=== PATIENT | male | born 1935 | race Caucasian/White ===

== ENCOUNTER 2022-11-18 08:41 | Emergency (ER) | payer MEDICARE, SELFPAY ==
[2022-11-18] VITALS (8 sets, daily range): BP systolic 138–180; BP diastolic 70–121; PULSE 103–114; RESP 18–53; O2SAT 92–94; BMI 29.7
--- NOTE | 2022-11-18 08:55 | DI.RAD.S_ITS ---
PROCEDURE: XR CHEST 2V INDICATIONS: SOB TECHNIQUE: 2 views of the chest were acquired. COMPARISON: None. FINDINGS: Surgical changes and devices: None. Lungs and pleura: There is an overall appearance of increased pulmonary vascularity. Mild asymmetric increased is in base. Mediastinum: Mediastinal contours are normal. Heart size is enlarged. Bones and chest wall: No suspicious bony abnormalities. Soft tissues appear unremarkable. IMPRESSION: Increased vascularity suggestive of edema. Mild asymmetric increased opacity in the right base which may represent focal edema versus developing pneumonia. Dictated by: Bre Mayers M.D. on 11/18/2022 at 10:04 Approved by: Bre Mayers M.D. on 11/18/2022 at 10:05
--- NOTE | 2022-11-18 08:55 | ED.GENADULT ---
HPI - General Adult General Chief complaint: Shortness of Breath/Dyspnea Stated complaint: COPD attack, coughing, EMT's advised ER visit Time Seen by Provider: 11/18/22 08:54 History of Present Illness HPI narrative: 87-year-old male former smoker with history of COPD presents with his in the chief complaint of increasing wheezing, shortness of breath and a dry hacking cough for the past few days. He denies any runny nose, sore throat. He denies headache, blurred vision. He has no chest pain, nausea, vomiting or diarrhea. He denies abdominal pain, dysuria, frequency or urgency. He has been using his inhalers at home sporadically but does not use a chamber. They report to of spoken with paramedics this morning who gave a breathing treatment and helped him a bit. He denies any recent travel, injury, trauma, history of blood clot or cancer Related Data Previous Rx's Medication Instructions Recorded amoxicillin 500 mg capsule 1,000 mg PO Q8H 5 days #30 caps 11/18/22 benzonatate 200 mg capsule 200 mg PO BID PRN cough #20 caps 11/18/22 prednisone 10 mg tablet See Rx Instructions .Route 11/18/22 .COMPLEX #30 tabs Allergies Allergy/AdvReac Type Severity Reaction Status Date / Time Sulfa (Sulfonamide Allergy Verified 11/18/22 09:02 Antibiotics) codeine AdvReac Nausea Verified 11/18/22 09:02 pravastatin AdvReac Muscle Pain Verified 11/18/22 09:02 Review of Systems Review of Systems Narrative: GENERAL: Denies chills, fatigue, malaise, fever, sweats. HEENT: Denies sinus pain, ear pain, sore throat, difficulty swallowing, dizziness. RESPIRATORY: See HPI CARDIOVASCULAR: Denies chest pain, palpitations, orthopnea, edema, GASTROINTESTINAL: Denies nausea, vomiting, abdominal pain, diarrhea, constipation, melena. : Denies dysuria, frequency, incontinence, hematuria, urinary retention. MUSCULOSKELETAL: denies weakness, joint pain, or bony pain SKIN: Denies rash, skin lesions, or other NEUROLOGIC: Denies weakness, headache, numbness, change in speech, confusion, seizures, incoordination. PSYCHIATRIC: No concerning psychosocial issues. 12 point review of systems is negative except for those stated above Patient History Social History Smoking Status: Former smoker Exam Narrative Exam Narrative: GENERAL: [87] year old patient appears stated age. Well-developed patient, in mild distress. HEAD: Atraumatic. Normocephalic. EYES: Pupils equal round and reactive. Extraocular motions intact. No scleral icterus. No injection or drainage. ENT: Nose without bleeding, purulent drainage. Throat without erythema, tonsillar hypertrophy or exudate. Airway patent. NECK: Trachea midline. Non tender CARDIOVASCULAR: Slightly tachycardic, regular, no murmurs, clicks, rubs or gallops RESPIRATORY: Decreased breath sounds throughout, tight, distant wheezing in all thompson GASTROINTESTINAL: Abdomen soft, non-tender, nondistended. EXTREMITIES: No edema or joint tenderness. BACK: Nontender without deformity or crepitance. No flank tenderness. NEURO: AOx3. SKIN: No rash or erythema of visible areas Initial Vital Signs Initial Vital Signs: Vital Signs Pulse Rate 107 H 11/18/22 08:57 Respiratory Rate 20 11/18/22 08:57 Blood Pressure 138/87 11/18/22 08:57 Pulse Oximetry 93 11/18/22 08:57 Oxygen Delivery Method Room Air 11/18/22 08:57 Course Orders Ordered: ED Orders 11/18/22 08:55 XR chest 2V Stat 11/18/22 09:10 Complete Blood Count AUTO DIFF Stat Comprehensive Metabolic Panel Stat Covid-19 + FLU A/B + RSV - PCR Stat D Dimer Stat Magnesium Stat NT-proBNP (BNP-Adult 18+) Stat Procalcitonin Stat 11/18/22 10:35 CT angio chest PE protocol Stat Discontinued Medications Albuterol (Albuterol 2.5 Mg/3 Ml Neb (Adult)) 5 mg INH NOW ONE Stop: 11/18/22 09:13 Last Admin: 11/18/22 09:33 Dose: 5 mg Documented By: RETA Albuterol/Ipratropium (Albuterol/Ipratropium 3 Ml Ampul) 3 ml INH NOW ONE Stop: 11/18/22 08:55 Last Admin: 11/18/22 09:01 Dose: 3 ml Documented By: RETA Methylprednisolone (Methylprednisolone 125 Mg/2 Ml Vial) 125 mg IV NOW ONE Stop: 11/18/22 08:55 Last Admin: 11/18/22 09:21 Dose: 125 mg Documented By: PRECIOUS Vital Signs Vital signs: Vital Signs - 8 hr 11/18/22 08:57 11/18/22 09:01 11/18/22 09:34 Pulse Rate 107 H 103 H 107 H Respiratory Rate 20 18 22 Blood Pressure 138/87 Pulse Oximetry 93 93 94 Oxygen Delivery Method Room Air Room Air Room Air Oxygen Flow Rate 0 0 Fraction of Inspired Oxygen 21 21 11/18/22 09:00 11/18/22 10:03 Pulse Rate 104 H 111 H Respiratory Rate 18 22 Blood Pressure 180/121 H 154/70 H Pulse Oximetry 93 92 Oxygen Delivery Method Room Air Room Air Oxygen Flow Rate Fraction of Inspired Oxygen Medical Decision Making Lab Data 11/18/22 09:10 11/18/22 09:10 Labs: Lab Results 11/18/22 11/18/22 11/18/22 Range/Units 09:10 09:10 09:10 WBC 7.8 (4.5-11.0) X10^3/uL RBC 4.34 L (4.5-5.9) X10^6/uL Hgb 13.6 (13.5-17.5) g/dL Hct 39.9 L (41-53) % MCV 91.8 (80-100) fL MCH 31.3 (26-34) PG MCHC 34.1 (30-36) % RDW 15.2 H (11.6-14.8) % Plt Count 109 L (150-400) X10^3/uL Neut % (Auto) 68.0 (50-75) % Lymph % (Auto) 16.0 L (25-40) % Stephenson % (Auto) 14.4 H (3-14) % Eos % (Auto) 1.0 L (2-4) % Baso % (Auto) 0.6 (0-2) % Neut # (Auto) 5300 (0071-7176) /uL Lymph # (Auto) 1200 (0099-2277) /uL Stephenson # (Auto) 1100 H (0-900) /uL Eos # (Auto) 100 (0-450) /uL Baso # (Auto) 0 (0-100) /uL D-Dimer (<500) ng/ml Sodium 134 L (137-145) mmol/L Potassium 3.4 (3.4-5.1) mmol/L Chloride 98 (98-107) mmol/L Carbon Dioxide 27 (22-32) mmol/L BUN 22 H (9-20) mg/dL Creatinine 1.37 H (0.66-1.25) mg/dL Estimated GFR 50 L (>60) mL/min BUN/Creatinine Ratio 16.1 (6-22) Glucose 136 H (80-110) mg/dL Calcium 9.0 (8.4-10.2) mg/dL Magnesium 1.7 (1.6-2.3) mg/dL Total Bilirubin 0.8 (0.2-1.3) mg/dL AST 30 (17-59) IU/L ALT 23 (<50) IU/L Alkaline Phosphatase 25 L (38-126) U/L NT-Pro-B Natriuret Pep 396 (<450) pg/mL Total Protein 7.0 (6.3-8.2) g/dL Albumin 4.1 (3.5-5.0) g/dL Globulin 2.9 (1.7-4.1) g/dL Albumin/Globulin Ratio 1.4 (1.0-2.8) Procalcitonin 0.09 (<0.5) ng/mL SARS-CoV-2 (PCR) (Negative) Influenza A (RT-PCR) (NEGATIVE) Influenza B (RT-PCR) (NEGATIVE) RSV (PCR) (Negative) 11/18/22 11/18/22 Range/Units 09:10 09:10 WBC (4.5-11.0) X10^3/uL RBC (4.5-5.9) X10^6/uL Hgb (13.5-17.5) g/dL Hct (41-53) % MCV (80-100) fL MCH (26-34) PG MCHC (30-36) % RDW (11.6-14.8) % Plt Count (150-400) X10^3/uL Neut % (Auto) (50-75) % Lymph % (Auto) (25-40) % Stephenson % (Auto) (3-14) % Eos % (Auto) (2-4) % Baso % (Auto) (0-2) % Neut # (Auto) (9906-9176) /uL Lymph # (Auto) (5082-6343) /uL Stephenson # (Auto) (0-900) /uL Eos # (Auto) (0-450) /uL Baso # (Auto) (0-100) /uL D-Dimer 979 H (<500) ng/ml Sodium (137-145) mmol/L Potassium (3.4-5.1) mmol/L Chloride (98-107) mmol/L Carbon Dioxide (22-32) mmol/L BUN (9-20) mg/dL Creatinine (0.66-1.25) mg/dL Estimated GFR (>60) mL/min BUN/Creatinine Ratio (6-22) Glucose (80-110) mg/dL Calcium (8.4-10.2) mg/dL Magnesium (1.6-2.3) mg/dL Total Bilirubin (0.2-1.3) mg/dL AST (17-59) IU/L ALT (<50) IU/L Alkaline Phosphatase (38-126) U/L NT-Pro-B Natriuret Pep (<450) pg/mL Total Protein (6.3-8.2) g/dL Albumin (3.5-5.0) g/dL Globulin (1.7-4.1) g/dL Albumin/Globulin Ratio (1.0-2.8) Procalcitonin (<0.5) ng/mL SARS-CoV-2 (PCR) Negative (Negative) Influenza A (RT-PCR) Flu a negative (NEGATIVE) Influenza B (RT-PCR) Flu b negative (NEGATIVE) RSV (PCR) Negative (Negative) MDM Narrative Medical decision making narrative: CC: 87-year-old male former smoker with COPD presents with cough and elevated heart rate Complicating co-morbidities: Age, former smoker, COPD Data collected from: Patient Medical records reviewed: Prior notes reviewed in our EMR Differential considered, but not limited to: COPD exacerbation, viral upper respiratory infection, pneumonia, pulmonary embolism versus other Exam documented above, pertinent findings include: Patient with frequent dry and hacking cough but no tachypnea or hypoxemia. Patient is tachycardic but regular. Abdomen is soft and nontender Lab Test results independently reviewed as above. Pertinent findings: No leukocytosis or anemia, no left shift. Electrolytes largely in normal range, D-dimer above age corrected Independently reviewed EKG as above Imaging studies independently reviewed: Chest x-ray shows possible opacity in the right lung base consistent with edema versus pneumonia. CT angiogram demonstrates no pulmonary embolism or other significant abnormal findings Treatments: DuoNeb, albuterol, Solu-Medrol Re-evaluations: Improved aeration and some improvement in work of breathing Discussion: Patient with wheezing, shortness of breath and cough improves with bronchodilators. He is had no fever or chills but does admit to some production of sputum. Imaging does suggest the possibility of pneumonia. He is not hypoxemic or overly short of breath. There is no evidence of blood clot. Work of breathing is improved, lung sounds have improved. Patient appropriate for antibiotics and symptomatic treatment of COPD exacerbation. Disposition: see below, along with detailed discharge instructions that have been reviewed with patient as well as indications for ED re-evaluation and additional outpatient follow up Discharge Plan Departure Patient Disposition: Home Clinical Impression: Pneumonia, Acute exacerbation of chronic obstructive pulmonary disease Instructions: Chronic Obstructive Pulmonary Disease, DI for Pneumonia -- Adult Activity Restrictions/Additional Instructions: *You have been diagnosed with [pneumonia and exacerbation of COPD] *What to do: *Please continue to take your regular medications as directed. [ x] New medication prescriptions sent to your pharmacy: [Robert ] [ ] New medication written as a paper prescription [ ] No new medications given *Please follow up with your primary care provider in 2-3 days, call for an appointment. Let them know you were seen in the Emergency Department and that we ask that you be seen in follow up. We will electronically transmit a record of today's note if your PCP is in our system *If you do not have a primary care provider please contact the [facility] Resource line at [phone]. They will ask some questions about your medical history and help get you set up with a doctor in the community. *Return to Emergency Department if you should have any new, worsening or concerning symptoms, such as [fever greater than 101 F, shaking chills, worsening pain, persistent vomiting or other bothersome symptoms] Prescriptions: New amoxicillin 500 mg capsule 1,000 mg PO Q8H 5 Days Qty: 30 0RF benzonatate 200 mg capsule 200 mg PO BID PRN (Reason: cough) Qty: 20 0RF prednisone 10 mg tablet See Rx Instructions .ROUTE .COMPLEX Qty: 30 0RF Rx Instructions: Day 1,2,3: 40mg PO Daily Day 4,5,6: 30mg PO Daily Day 7,8,9: 20mg PO Daily Day 10,11,12: 10mg PO Daily #30 Referrals: Juancarlos Cornejo MD [Primary Care Provider] - Stand Alone Forms: Patient Portal/API
[2022-11-18] MEDS: ALBUTEROL/IPRATROPIUM 3 ML AMPUL INH (09:01)
[2022-11-18] MEDS: methylPREDNISolone 125 MG/2 ML VIAL IV (09:21)
[2022-11-18 09:31] LABS: Add Manual Diff / Slide Review NO; Basophils Absolute Auto 0 /uL (0-100); Basophils Percent Auto 0.6 % (0-2); Eosinophils Absolute Auto 100 /uL (0-450); Hematocrit 39.9 % (41-53); Hemoglobin 13.6 g/dL (13.5-17.5); Lymphocytes Absolute Auto 1200 /uL (1100-4500); Mean Corpuscular HGB Conc 34.1 % (30-36); Mean Corpuscular Hemoglobin 31.3 PG (26-34); Mean Corpuscular Volume 91.8 fL (80-100); Monocytes Absolute Auto 1100 /uL (0-900); Monocytes Percent Auto 14.4 % (3-14); Neutrophils Absolute Auto 5300 /uL (1500-7000); Platelet Count 109 X10^3/uL (150-400); Red Blood Cell Count 4.34 X10^6/uL (4.5-5.9); Red Cell Distribution Width 15.2 % (11.6-14.8); White Blood Cell Count 7.8 X10^3/uL (4.5-11.0)
[2022-11-18] MEDS: ALBUTEROL 2.5 MG/3 ML NEB (ADULT) 5 MG INH (09:33)
[2022-11-18 09:43] LABS: Alanine Aminotransferase 23 IU/L (<50); Albumin 4.1 g/dL (3.5-5.0); Albumin Globulin Ratio 1.4 (1.0-2.8); Alkaline Phosphatase 25 U/L (38-126); Aspartate Aminotransferase 30 IU/L (17-59); BUN Creatinine Ratio 16.1 (6-22); Bilirubin Total 0.8 mg/dL (0.2-1.3); Blood Urea Nitrogen 22 mg/dL (9-20); Carbon Dioxide 27 mmol/L (22-32); Chloride 98 mmol/L (98-107); Estimated Glomerular Filt Rate 50 mL/min (>60); Globulin 2.9 g/dL (1.7-4.1); Glucose 136 mg/dL (80-110); HEMOLYSIS 16 (0-50); Magnesium 1.7 mg/dL (1.6-2.3); Potassium 3.4 mmol/L (3.4-5.1); Sodium 134 mmol/L (137-145)
[2022-11-18 09:51] LABS: NT-proBNP (BNP-Adult 18+) 396 pg/mL (<450)
[2022-11-18 10:00] LABS: D Dimer 979 ng/ml (<500); Influenza A - CEPHEID Flu A NEGATIVE (NEGATIVE); Influenza B - CEPHEID Flu B NEGATIVE (NEGATIVE); Procalcitonin 0.09 ng/mL (<0.5); Respiratory Syncytial Virus Negative (Negative)
--- NOTE | 2022-11-18 10:35 | DI.CT.S_ITS ---
PROCEDURE: CT ANGIO CHEST PE PROTOCOL INDICATIONS: dry cough, SOB, tachycardia, critical Dimer TECHNIQUE: After the administration of intravenous contrast, 2 mm thick sections acquired from the pulmonary apices to the posterior costophrenic angles. 3-dimensional maximum intensity projection (MIP) coronal and sagittal reformats were then acquired through the thorax. For radiation dose reduction, the following was used: automated exposure control, adjustment of mA and/or kV according to patient size. COMPARISON: None. FINDINGS: Image quality: Excellent. Pulmonary arteries: Pulmonary arteries are normal in size, and demonstrate no intraluminal filling defects to suggest central pulmonary embolism. Lungs and pleura: Lungs are clear. No pleural effusions or pneumothorax. Central and peripheral airways are patent. Emphysematous changes are present. Mediastinum: Heart size is normal, minimal pericardial effusion. No mediastinal or hilar adenopathy. Ascending thoracic aorta is prominent measuring 4 cm. Esophagus is normal in caliber, with mild hiatal hernia. Bones and chest wall: No suspicious bony lesions. Ribs and thoracic spine appear intact throughout. Thyroid gland is unremarkable. No axillary or supraclavicular adenopathy. Abdomen: There is an incompletely visualized low-attenuation focus adjacent to the left superior renal pole. Vascular calcifications are noted at the celiac axis. Otherwise,visualized upper abdominal solid organs appear normal in the early arterial phase of enhancement. IMPRESSION: No pulmonary embolism. Lungs are clear. Low-attenuation focus partially visualized adjacent to the left kidney suggestive exophytic cyst. However, it is incompletely evaluated. On a nonemergent basis, further evaluation with ultrasound may be obtained as indicated. Dictated by: Bre Mayers M.D. on 11/18/2022 at 11:20 Approved by: Bre Mayers M.D. on 11/18/2022 at 11:26
[2022-11-18 10:39] LABS: COVID-19 CEPHEID 4-PLEX PCR Negative (Negative)
== END 2022-11-18 11:58 | disposition home or self-care (01) ==
PROVIDERS: Emergency Provider Emergency Medicine; PCP Internal Medicine
DX: J18.9 Pneumonia, unspecified organism (principal); J44.1 Chronic obstructive pulmonary disease with (acute) exacerbation; Z20.822 Contact with and (suspected) exposure to COVID-19
CPT/HCPCS: 0241U; 36415; 71046; 71275; 80053; 83735; 83880; 84145; 85025; 85379; 94640; 96374; 99284; J2930; J7613; Q9967